=== PATIENT | female | born 1955 | race Caucasian/White ===

== ENCOUNTER 2021-04-23 15:34 | Inpatient (IN) | payer MEDICARE ==
[~2021-04-23 15:34] MED LIST: Iopamidol-370 76% 500 ML 1 ML ONE
[2021-04-23] MEDS ORDERED: Acetaminophen 325 MG TAB PO PRN (18:58)
[2021-04-23] MEDS ORDERED: Nitroglycerin 0.4 MG TAB (25 Tab Bottle) SL PRN (18:58)
[2021-04-23] MEDS ORDERED: HYDROcodone/Acetaminophen 5/325 mg Tablet PO PRN (18:58)
[2021-04-23] MEDS ORDERED: Ondansetron PF 4 MG/2 ML Vial IVP PRN (18:58)
[2021-04-23] MEDS ORDERED: Morphine 2 MG/ML VIAL SLOW IVP PRN (19:06)
[2021-04-23 19:43] LABS: SARS-CoV-2 NAA Rapid Test DETECTED (NotDetected)
[2021-04-23 20:15] LABS: Troponin I 18.635 ng/mL (< 0.028)
[2021-04-23 20:17] VITALS: BMI 28.1
[2021-04-23] MEDS ORDERED: Enoxaparin Sodium 80 MG/0.8 ML SYRINGE SC SCH ×2 (21:00→23:59)
[2021-04-24 03:38] LABS: #Basophils 0.1 thou/uL (0.0-0.2); #Eosinphils 0.3 thou/uL (0.0-0.7); #Lymphocytes 3.8 thou/uL (1.20-3.40); #Monocytes 0.9 thou/uL (0.11-0.59); #Neutrophils 8.1 thou/uL (1.40-6.50); %Basophils 0.6 % (0.0-1.0); %Eosinophils 2.3 % (0.0-10.0); %Lymphocytes 28.9 % (21.0-51.0); %Monocytes 6.9 % (0.0-10.0); %Neutrophils 61.2 % (42.0-75.0); Hemoglobin 13.8 g/dL (12.0-16.0); Mean Corpuscular HGB CONC 33.1 g/dL (32.0-36.0); Mean Corpuscular Hemoglobin 31.7 pg (27.0-31.0); Mean Corpuscular Volume 95.8 fL (78.0-98.0); Mean Platelet Volume 8.5 fL (7.4-10.4); Platelet Count 249 thou/uL (130-400); RBC Distribution Width 11.8 % (11.5-14.5); Red Blood Cell (RBC) Count 4.36 mill/uL (4.20-5.40); White Blood Cell (WBC) Count 13.2 thou/uL (4.8-10.8)
[2021-04-24 03:58] LABS: Bilirubin Negative (Negative); Blood, Urine Negative (Negative); Clarity Clear (Clear); Glucose, Urine (Dipstick) Normal (Negative); Ketone, Urine Negative (Negative); Leukocyte Negative Leu/uL (Negative); Nitrite Negative (Negative); Protein, Urine (Dipstick) Negative (Neg-Trace); RBC/HPF 0-3 HPF (0-3); Specific Gravity, Urine 1.016 (1.002-1.036); Squamous Epithelial 0-3 HPF (0-3); Urobilinogen Normal mg/dL (Less than 2); WBC/HPF 0-3 HPF (0-3); pH, Urine 5.5 (5.0-9.0)
[2021-04-24 03:59] LABS: Chloride 105 mmol/L (98-107); Sodium 138 mmol/L (136-145)
[2021-04-24 04:00] LABS: Calcium 8.4 mg/dL (7.8-10.44); Glucose 105 mg/dL (80-115); Triglycerides 215 mg/dL (Less than 150)
[2021-04-24 04:02] LABS: Anion Gap 14 mmol/L (10-20); Carbon Dioxide 23 mmol/L (23-31)
[2021-04-24 04:03] LABS: Critical Call Chem Troponin I RESULT DECREASING; Troponin I 14.758 ng/mL (< 0.028)
[2021-04-24 04:04] LABS: Calc. Creatinine Clearance 102 mL/min (70-130)
[2021-04-24 04:05] LABS: BUN (Urea Nitrogen) 8 mg/dL (9.8-20.1)
[2021-04-24 04:06] LABS: Cardiac Risk 5.1 (Less than 4.5); Cholesterol 215 mg/dl (< 200 Desired); HDL Cholesterol 42 mg/dL (>60 Neg Risk); LDL Cholesterol, Calculated 130 mg/dL
[2021-04-24 04:06] LABS: Bacteria/HPF 1+ HPF (None Seen)
[2021-04-24 04:08] LABS: Urine Culture Reflex Yes Yes
[2021-04-24] MEDS ORDERED: Enoxaparin Sodium 80 MG/0.8 ML SYRINGE SC SCH (09:00)
[2021-04-24] MEDS ORDERED: Iopamidol 370 76% 100 ML VIAL ONE (09:37)
[2021-04-24] MEDS ORDERED: Adenosine 6 MG/2 ML VIAL ONE (10:49)
[2021-04-24] MEDS ORDERED: Heparin 10,000 UNITS/ 10 ML VIAL ONE (10:49)
[2021-04-24] MEDS ORDERED: Verapamil 5 MG/2 ML VIAL ONE (10:49)
[2021-04-24] MEDS ORDERED: Nitroglycerin 100MG/250ML BOT 0 ML ONE (10:49)
[2021-04-24] MEDS ORDERED: Fentanyl 100 MCG/2 ML VIAL ONE (11:19)
[2021-04-24] MEDS ORDERED: Midazolam HCl 2 mg/2 ml Vial ONE (11:19)
[2021-04-24] MEDS ORDERED: Nitroglycerin 50 MG/250 ML BOT 250 ML ONE (11:36)
[2021-04-24] MEDS ORDERED: Fentanyl 250 MCG/5 ML VIAL ONE (11:59)
[2021-04-24] MEDS ORDERED: Midazolam HCl 5 mg/5 ml Vial ONE (12:00)
[2021-04-24] MEDS ORDERED: Dexamethasone 4 mg/ml Vial ONE (12:15)
[2021-04-24] MEDS ORDERED: Bupivacaine PF 0.5% 30 ML VIAL ONE (12:15)
[2021-04-24] MEDS ORDERED: EPINEPHrine 1 MG/ML AMP ONE (12:15)
[2021-04-24] MEDS ORDERED: Albumin 5% 500 ML ONE (12:15)
[2021-04-24] MEDS ORDERED: Lidocaine 2% PF 100 mg/5 ml Syringe ONE (12:45)
[2021-04-24] MEDS ORDERED: Calcium Chloride 1 GM/10 ML Abboject SYRINGE ONE (12:45)
[2021-04-24] MEDS ORDERED: Rocuronium Bromide 10 MG/ML (10ML VIAL) ONE (12:45)
[2021-04-24] MEDS ORDERED: Magnesium Sulfate 1 GM/2 ML VIAL ONE (12:45)
[2021-04-24] MEDS ORDERED: Sodium Bicarb 50 MEQ/50 ML Abboject 8.4% SYRINGE ONE (12:45)
[2021-04-24] MEDS ORDERED: Thrombin 5000 UNITS/5 ML VIAL ONE (12:45)
[2021-04-24] MEDS ORDERED: Aminocaproic Acid 5 GM/20 ML VIAL ONE (12:45)
[2021-04-24] MEDS ORDERED: Protamine Sulfate 250 MG/25 ML VIAL ONE (12:45)
[2021-04-24] MEDS ORDERED: Cardioplegic Soln 1,000 ML BAG ONE (12:45)
[2021-04-24] MEDS ORDERED: Vecuronium 10 MG VIAL ONE (12:45)
[2021-04-24] MEDS ORDERED: Heparin 5,000 UNITS/ML VIAL ONE (12:45)
[2021-04-24] MEDS ORDERED: Potassium Chloride 60 MEQ/30 ML VIAL ONE (12:45)
[2021-04-24] MEDS ORDERED: Papaverine 60 MG/2 ML VIAL ONE (12:45)
[2021-04-24] MEDS ORDERED: PROPOFOL 200 MG/20 ML VIAL ONE (12:45)
[2021-04-24] MEDS ORDERED: Fentanyl 100 MCG/2 ML VIAL SLOW IVP PRN (16:12)
[2021-04-24] MEDS ORDERED: Potassium Chloride 20 MEQ/100 ML PREMIX BAG IVPB PRN (16:12)
[2021-04-24] MEDS ORDERED: Acetaminophen 325 MG TAB PO PRN (16:12)
[2021-04-24] MEDS ORDERED: Bisacodyl 5 MG TAB PO PRN (16:12)
[2021-04-24] MEDS ORDERED: hydrALAZINE 20 MG/ML VIAL SLOW IVP PRN (16:12)
[2021-04-24] MEDS ORDERED: Bisacodyl 10 MG SUPP PR PRN (16:12)
[2021-04-24] MEDS ORDERED: Nitroglycerin 50 MG/250 ML BOT 250 ML IVPB PRN (16:12)
[2021-04-24] MEDS ORDERED: traMADol HCl 50 MG TAB PO PRN ×2 (16:12)
[2021-04-24] MEDS ORDERED: Guaifenesin DM 100-10/5 ML UDCUP PO PRN (16:12)
[2021-04-24] MEDS ORDERED: Hetastarch 6% 500 ML 500 ML IVPB PRN (16:12)
[2021-04-24] MEDS ORDERED: Mag-Al 1200 mg/1200 mg/30 ML UDCUP PO PRN (16:12)
[2021-04-24] MEDS ORDERED: Morphine 2 MG/ML VIAL SLOW IVP PRN (16:12)
[2021-04-24] MEDS ORDERED: Magnesium 2 GM/50 ML 1 GM in Premix Bag 1 BAG IVPB SCH (16:15)
[2021-04-24] MEDS ORDERED: Hydrocortisone Sod Succ/PF 100 mg/2 ml Vial IVP SCH (16:15)
[2021-04-24] MEDS ORDERED: D5 1/2 NS w/20 mEq KCL 1,000 ML ONE (16:15)
[2021-04-24] MEDS ORDERED: D5 1/2 NS w/20 mEq KCL 1,000 ML IV SCH (16:15)
[2021-04-24] MEDS ORDERED: Morphine 4 MG/ML VIAL ONE (16:44)
[2021-04-24 16:47] LABS: Actual Bicarbonate (HCO3a) 21.2 mEq/L (22-28); Base Excess (BEa) -5.4 mEq/L (-2.0 to +3.0); CO2 Tension 45.9 mmHg (35.0-45.0); Calcium, Ionized (arterial) 1.14 mmol/L (1.12-1.30); Carboxyhemoglobin (COHb) 0.8 gm% (0.0-3.0); Hemoglobin (Hb) 12.5 g/dL (12.0-16.0); O2 Tension (PaO2), arterial 70.1 mmHg (> 80.0); Potassium - ABG Lab 4.01 mmol/L (3.70-5.30); pH, Arterial 7.28 (7.35-7.45)
[2021-04-24 16:52] LABS: ALV-art Gradient 300.325 mmHg (0-20); Puncture Site Arterial Line
[2021-04-24 16:56] LABS: Hemoglobin 12.2 g/dL (12.0-16.0); Mean Corpuscular HGB CONC 33.5 g/dL (32.0-36.0); Mean Corpuscular Hemoglobin 32.7 pg (27.0-31.0); Mean Corpuscular Volume 97.4 fL (78.0-98.0); Mean Platelet Volume 8.6 fL (7.4-10.4); Platelet Count 303 thou/uL (130-400); RBC Distribution Width 11.9 % (11.5-14.5); Red Blood Cell (RBC) Count 3.73 mill/uL (4.20-5.40); White Blood Cell (WBC) Count 38.6 thou/uL (4.8-10.8)
[2021-04-24 17:00] LABS: Anion Gap 14 mmol/L (10-20); BUN (Urea Nitrogen) 7 mg/dL (9.8-20.1); Calc. Creatinine Clearance 96 mL/min (70-130); Calcium 8.2 mg/dL (7.8-10.44); Carbon Dioxide 21 mmol/L (23-31); Chloride 109 mmol/L (98-107); Glucose 198 mg/dL (80-115); Potassium 4.2 mmol/L (3.5-5.1); Sodium 140 mmol/L (136-145)
[2021-04-24] MEDS ORDERED: Dextrose 5% in Water 1,000 ML IV PRN (17:00)
[2021-04-24] MEDS ORDERED: Dextrose 50% Abboject 50 ML SYRINGE SLOW IVP PRN (17:00)
[2021-04-24 17:01] LABS: INR-International Normal Ratio 1.2; PTT 37.4 sec (22.9-36.1); Prothrombin Time 15.7 sec (12.0-14.7)
[2021-04-24 17:09] LABS: Band 30 % (5-11); Lymphocytes 13 % (21-51); MDiff Complete? YES; Monocytes 3 % (0-10); Neutrophil 54 % (42-75); Platelet Morphology Comment Appears Adequate; Polychromasia SLIGHT = 2-3 cells (100X) (0-2/hpf)
[2021-04-24] MEDS: Insulin Regular 300 UNITS/3 ML VIAL SC PRN ×3 (17:17→23:53)
[2021-04-24] MEDS: Ketorolac Tromethamine 30 MG/ML VIAL IVP SCH ×2 (18:12→23:04)
[2021-04-24] MEDS: Atorvastatin Calcium 40 MG TAB PO SCH (20:05)
[2021-04-24] MEDS: ceFAZolin Sodium/D5W 2 GM in Premix Bag 1 BAG IVPB SCH (20:05)
[2021-04-24] MEDS: Famotidine/PF 20 mg/2ml Vial SLOW IVP SCH (20:06)
[2021-04-24 22:08] LABS: Hemoglobin 11.7 g/dL (12.0-16.0)
[2021-04-24 22:20] LABS: Potassium 4.7 mmol/L (3.5-5.1)
[2021-04-24] MEDS: Ondansetron PF 4 MG/2 ML Vial IVP PRN (23:22)
[2021-04-25] MEDS: Norepinephrine 8 MG/0.9% NS 250 ML IVPB PRN (02:20)
[2021-04-25] MEDS: Fentanyl 100 MCG/2 ML VIAL SLOW IVP PRN ×3 (02:34→10:27)
[2021-04-25] MEDS: ceFAZolin Sodium/D5W 2 GM in Premix Bag 1 BAG IVPB SCH ×2 (04:11→13:13)
[2021-04-25 05:00] LABS: #Eosinphils 0.1 thou/uL (0.0-0.7); #Lymphocytes 0.9 thou/uL (1.20-3.40); #Monocytes 0.9 thou/uL (0.11-0.59); %Eosinophils 0.5 % (0.0-10.0); %Lymphocytes 4.3 % (21.0-51.0); %Monocytes 4.2 % (0.0-10.0); Mean Corpuscular HGB CONC 33.6 g/dL (32.0-36.0); Mean Corpuscular Hemoglobin 32.7 pg (27.0-31.0); Mean Corpuscular Volume 97.5 fL (78.0-98.0); Platelet Count 279 thou/uL (130-400); RBC Distribution Width 11.9 % (11.5-14.5); Red Blood Cell (RBC) Count 3.35 mill/uL (4.20-5.40); White Blood Cell (WBC) Count 21.9 thou/uL (4.8-10.8)
[2021-04-25] MEDS: Ketorolac Tromethamine 30 MG/ML VIAL IVP SCH (05:14)
[2021-04-25 05:20] LABS: Anion Gap 11 mmol/L (10-20); BUN (Urea Nitrogen) 8 mg/dL (9.8-20.1); Calc. Creatinine Clearance 103 mL/min (70-130); Calcium 8.4 mg/dL (7.8-10.44); Carbon Dioxide 24 mmol/L (23-31); Chloride 109 mmol/L (98-107); Glucose 128 mg/dL (80-115); Potassium 4.6 mmol/L (3.5-5.1); Sodium 139 mmol/L (136-145)
[2021-04-25] MEDS: Ondansetron PF 4 MG/2 ML Vial IVP PRN (05:20)
[2021-04-25] MEDS: Insulin Regular 300 UNITS/3 ML VIAL SC PRN ×2 (05:52→08:23)
[2021-04-25] MEDS: Magnesium 2 GM/50 ML 1 GM in Premix Bag 1 BAG IVPB SCH (08:21)
[2021-04-25] MEDS: Famotidine/PF 20 mg/2ml Vial SLOW IVP SCH (08:22)
[2021-04-25] MEDS ORDERED: Aspirin 325 MG TAB PO SCH (09:00)
[2021-04-25] MEDS ORDERED: predniSONE 20 MG TAB PO SCH (09:00)
[2021-04-25] MEDS ORDERED: Iopamidol-370 76% 500 ML 1 ML ONE (09:39)
[2021-04-25] MEDS: Ibuprofen 200 MG TAB PO PRN ×2 (11:35→22:32)
[2021-04-25] MEDS ORDERED: HYDROcodone/Acetaminophen 5/325 mg Tablet PO PRN (14:39)
[2021-04-25] MEDS: HYDROcodone/Acetaminophen 5/325 mg Tablet PO PRN ×2 (15:09→20:05)
[2021-04-25] MEDS: Atorvastatin Calcium 40 MG TAB PO SCH (20:04)
[2021-04-25] MEDS ORDERED: Clopidogrel Bisulfate 75 MG TAB PO SCH (22:15)
[2021-04-25] MEDS: Lorazepam 0.5 MG TAB PO PRN (22:33)
[2021-04-26] MEDS: Fentanyl 100 MCG/2 ML VIAL SLOW IVP PRN ×4 (02:12→15:55)
[2021-04-26 05:03] LABS: #Eosinphils 0.1 thou/uL (0.0-0.7); #Monocytes 1.5 thou/uL (0.11-0.59); #Neutrophils 14.9 thou/uL (1.40-6.50); %Basophils 0.2 % (0.0-1.0); %Eosinophils 0.4 % (0.0-10.0); %Lymphocytes 15.3 % (21.0-51.0); %Monocytes 7.5 % (0.0-10.0); %Neutrophils 76.7 % (42.0-75.0); Hemoglobin 10.2 g/dL (12.0-16.0); Mean Corpuscular HGB CONC 32.5 g/dL (32.0-36.0); Mean Corpuscular Hemoglobin 31.6 pg (27.0-31.0); Mean Corpuscular Volume 97.4 fL (78.0-98.0); Platelet Count 250 thou/uL (130-400); RBC Distribution Width 12.1 % (11.5-14.5); Red Blood Cell (RBC) Count 3.24 mill/uL (4.20-5.40); White Blood Cell (WBC) Count 19.5 thou/uL (4.8-10.8)
[2021-04-26 05:36] LABS: Anion Gap 12 mmol/L (10-20); BUN (Urea Nitrogen) 10 mg/dL (9.8-20.1); Calc. Creatinine Clearance 115 mL/min (70-130); Calcium 8.2 mg/dL (7.8-10.44); Carbon Dioxide 24 mmol/L (23-31); Chloride 106 mmol/L (98-107); Glucose 137 mg/dL (80-115); Potassium 4.1 mmol/L (3.5-5.1); Sodium 138 mmol/L (136-145)
[2021-04-26] MEDS: Levothyroxine Sodium 50 MCG TAB PO SCH (06:14)
[2021-04-26] MEDS: Ondansetron PF 4 MG/2 ML Vial IVP PRN ×2 (06:35→15:55)
[2021-04-26] MEDS ORDERED: Protamine Sulfate 50 MG/5 ML VIAL ONE (06:51)
[2021-04-26] MEDS ORDERED: Heparin 5,000 UNITS/ML VIAL ONE (06:51)
[2021-04-26] MEDS ORDERED: Bupivacaine PF 0.5% 30 ML VIAL ONE (06:51)
[2021-04-26] MEDS ORDERED: EPINEPHrine 1 MG/ML AMP ONE (06:51)
[2021-04-26] MEDS: Magnesium 2 GM/50 ML 1 GM in Premix Bag 1 BAG IVPB SCH (08:14)
[2021-04-26] MEDS: Norepinephrine 8 MG/0.9% NS 250 ML IVPB PRN (08:23)
[2021-04-26] MEDS ORDERED: Fentanyl 100 MCG/2 ML VIAL ONE ×2 (09:24→12:34)
[2021-04-26] MEDS ORDERED: Ondansetron PF 4 MG/2 ML Vial IVP SCH (09:30)
[2021-04-26] MEDS ORDERED: Dexamethasone 4 mg/ml Vial SLOW IVP SCH (09:30)
[2021-04-26] MEDS: Clopidogrel Bisulfate 75 MG TAB PO SCH (09:35)
[2021-04-26] MEDS: Aspirin 81 mg Enteric Coated Tablet PO SCH (09:35)
[2021-04-26] MEDS: predniSONE 5 MG TAB PO SCH (09:35)
[2021-04-26] MEDS: DULoxetine 60 MG CAP PO SCH ×2 (09:35→19:43)
[2021-04-26] MEDS: Fluticasone Propionate Nasal Spray 16 gm Bottle NASAL SCH (09:35)
[2021-04-26] MEDS ORDERED: Midazolam HCl 2 mg/2 ml Vial ONE (09:38)
[2021-04-26] MEDS ORDERED: Ketamine 50 MG/ML (10ML VIAL) ONE (09:39)
[2021-04-26] MEDS ORDERED: PROPOFOL 200 MG/20 ML VIAL ONE (10:39)
[2021-04-26] MEDS ORDERED: Glycopyrrolate 0.2 MG/ML 5 ML SYRINGE ONE (10:39)
[2021-04-26] MEDS ORDERED: Rocuronium Bromide 10 MG/ML (10ML VIAL) ONE (10:39)
[2021-04-26] MEDS: Lorazepam 0.5 MG TAB PO PRN ×2 (15:56→21:41)
[2021-04-26] MEDS: HYDROcodone/Acetaminophen 5/325 mg Tablet PO PRN ×2 (18:17→23:19)
[2021-04-26] MEDS: Atorvastatin Calcium 40 MG TAB PO SCH (21:11)
[2021-04-27] MEDS: Ondansetron PF 4 MG/2 ML Vial IVP PRN (03:34)
[2021-04-27 04:04] LABS: #Lymphocytes 1.6 thou/uL (1.20-3.40); #Neutrophils 11.2 thou/uL (1.40-6.50); %Eosinophils 0.4 % (0.0-10.0); %Lymphocytes 11.3 % (21.0-51.0); %Monocytes 7.1 % (0.0-10.0); %Neutrophils 81.2 % (42.0-75.0); Hemoglobin 8.9 g/dL (12.0-16.0); Mean Corpuscular HGB CONC 32.3 g/dL (32.0-36.0); Mean Corpuscular Hemoglobin 31.7 pg (27.0-31.0); Mean Corpuscular Volume 98.2 fL (78.0-98.0); Platelet Count 219 thou/uL (130-400); RBC Distribution Width 12.2 % (11.5-14.5); Red Blood Cell (RBC) Count 2.79 mill/uL (4.20-5.40); White Blood Cell (WBC) Count 13.8 thou/uL (4.8-10.8)
[2021-04-27 04:25] LABS: Anion Gap 10 mmol/L (10-20); BUN (Urea Nitrogen) 8 mg/dL (9.8-20.1); Calc. Creatinine Clearance 124 mL/min (70-130); Carbon Dioxide 27 mmol/L (23-31); Chloride 106 mmol/L (98-107); Glucose 125 mg/dL (80-115); Potassium 4.6 mmol/L (3.5-5.1); Sodium 138 mmol/L (136-145)
[2021-04-27] MEDS: Levothyroxine Sodium 50 MCG TAB PO SCH (05:50)
[2021-04-27] MEDS: HYDROcodone/Acetaminophen 5/325 mg Tablet PO PRN ×4 (06:02→21:32)
[2021-04-27] MEDS: Clopidogrel Bisulfate 75 MG TAB PO SCH (08:25)
[2021-04-27] MEDS: Aspirin 81 mg Enteric Coated Tablet PO SCH (08:26)
[2021-04-27] MEDS: Fluticasone Propionate Nasal Spray 16 gm Bottle NASAL SCH (08:26)
[2021-04-27] MEDS: predniSONE 5 MG TAB PO SCH (08:26)
[2021-04-27] MEDS: DULoxetine 60 MG CAP PO SCH (08:26)
[2021-04-27] MEDS ORDERED: Nicotine 21 MG PATCH TD SCH (09:00)
[2021-04-27] MEDS ORDERED: Nitroglycerin 0.4 MG TAB (25 Tab Bottle) SL PRN (15:30)
[2021-04-27] MEDS ORDERED: Bisacodyl 10 MG SUPP PR PRN (15:30)
[2021-04-27] MEDS ORDERED: diphenhydrAMINE 25 MG CAP PO PRN (15:30)
[2021-04-27] MEDS ORDERED: Bisacodyl 5 MG TAB PO PRN (15:30)
[2021-04-27] MEDS ORDERED: Guaifenesin DM 100-10/5 ML UDCUP PO PRN (15:30)
[2021-04-27] MEDS ORDERED: Mag-Al 1200 mg/1200 mg/30 ML UDCUP PO PRN (15:30)
[2021-04-27] MEDS ORDERED: Zolpidem Tartrate 5 MG TAB PO PRN (15:30)
[2021-04-27] MEDS ORDERED: Mineral Oil ENEMA PR PRN (15:30)
[2021-04-27] MEDS: Nicotine 21 MG PATCH TD SCH (19:56)
[2021-04-27] MEDS: Atorvastatin Calcium 40 MG TAB PO SCH (19:56)
[2021-04-27] MEDS: Lorazepam 0.5 MG TAB PO PRN (22:27)
[2021-04-28] MEDS: Levothyroxine Sodium 50 MCG TAB PO SCH (04:22)
[2021-04-28] MEDS: predniSONE 5 MG TAB PO SCH (09:39)
[2021-04-28] MEDS: Aspirin 81 mg Enteric Coated Tablet PO SCH (09:39)
[2021-04-28] MEDS: Potassium Chloride 10 MEQ TAB PO SCH (09:39)
[2021-04-28] MEDS: Metoprolol Tartrate 25 MG TAB PO SCH ×2 (09:40→20:50)
[2021-04-28] MEDS: Clopidogrel Bisulfate 75 MG TAB PO SCH (09:40)
[2021-04-28] MEDS: Furosemide 40 MG TAB PO SCH (09:40)
[2021-04-28] MEDS ORDERED: HYDROcodone/Acetaminophen 5/325 mg Tablet PO PRN (09:40)
[2021-04-28] MEDS: DULoxetine 60 MG CAP PO SCH (09:40)
[2021-04-28] MEDS: Fluticasone Propionate Nasal Spray 16 gm Bottle NASAL SCH (12:25)
[2021-04-28] MEDS: Hydrocodone-Acetamin 15 ML UDCUP PO PRN ×2 (12:25→20:52)
[2021-04-28] MEDS: Lorazepam 0.5 MG TAB PO PRN (19:09)
[2021-04-28] MEDS: Ibuprofen 200 MG TAB PO PRN (19:10)
[2021-04-28] MEDS: Nicotine 21 MG PATCH TD SCH (20:50)
[2021-04-28] MEDS: Atorvastatin Calcium 40 MG TAB PO SCH (20:51)
[2021-04-28] MEDS: Ondansetron PF 4 MG/2 ML Vial IVP PRN (21:39)
[2021-04-29] MEDS: Lorazepam 0.5 MG TAB PO PRN ×2 (02:48→20:24)
[2021-04-29] MEDS: Levothyroxine Sodium 50 MCG TAB PO SCH (05:17)
[2021-04-29] MEDS: Metoprolol Tartrate 25 MG TAB PO SCH ×2 (09:12→20:23)
[2021-04-29] MEDS: predniSONE 5 MG TAB PO SCH (09:12)
[2021-04-29] MEDS: Potassium Chloride 10 MEQ TAB PO SCH (09:12)
[2021-04-29] MEDS: DULoxetine 60 MG CAP PO SCH (09:12)
[2021-04-29] MEDS: Aspirin 81 mg Enteric Coated Tablet PO SCH (09:13)
[2021-04-29] MEDS: Furosemide 40 MG TAB PO SCH (09:13)
[2021-04-29] MEDS: Clopidogrel Bisulfate 75 MG TAB PO SCH (09:13)
[2021-04-29] MEDS: HYDROcodone/Acetaminophen 5/325 mg Tablet PO PRN ×3 (09:13→20:22)
[2021-04-29] MEDS: Fluticasone Propionate Nasal Spray 16 gm Bottle NASAL SCH (09:15)
[2021-04-29] MEDS: Atorvastatin Calcium 40 MG TAB PO SCH (20:22)
[2021-04-29] MEDS: Nicotine 21 MG PATCH TD SCH (20:24)
[2021-04-29] MEDS: Ibuprofen 200 MG TAB PO PRN (22:39)
[2021-04-30] MEDS: HYDROcodone/Acetaminophen 5/325 mg Tablet PO PRN ×3 (05:34→13:59)
[2021-04-30] MEDS: Levothyroxine Sodium 50 MCG TAB PO SCH (05:34)
[2021-04-30] MEDS: Potassium Chloride 10 MEQ TAB PO SCH (09:09)
[2021-04-30] MEDS: Aspirin 81 mg Enteric Coated Tablet PO SCH (09:09)
[2021-04-30] MEDS: predniSONE 5 MG TAB PO SCH (09:09)
[2021-04-30] MEDS: Clopidogrel Bisulfate 75 MG TAB PO SCH (09:09)
[2021-04-30] MEDS: DULoxetine 60 MG CAP PO SCH (09:09)
[2021-04-30] MEDS: Fluticasone Propionate Nasal Spray 16 gm Bottle NASAL SCH (09:09)
[2021-04-30] MEDS: Furosemide 40 MG TAB PO SCH (09:09)
[2021-04-30] MEDS: Metoprolol Tartrate 25 MG TAB PO SCH (09:10)
[2021-04-30 11:43] VITALS: BP 117/58; TEMP 98.2
== END 2021-04-30 14:45 | disposition home or self-care (01) | DRG 233 ==
LOC: ERS 15:34 → 2NO 17:38 → CCU 04-24 11:59 → 2NO 04-27 20:52
PROVIDERS: ADMIT Internal Medicine; ATTEND Internal Medicine
PROC: 4A023N7 Measurement of Cardiac Sampling and Pressure, Left Heart, Percutaneous Approach (ICD-10-PCS; 2021-04-23)
PROC: B2111ZZ Fluoroscopy of Multiple Coronary Arteries using Low Osmolar Contrast (ICD-10-PCS; 2021-04-23)
PROC: 021109W Bypass Coronary Artery, Two Arteries from Aorta with Autologous Venous Tissue, Open Approach (ICD-10-PCS; principal; 2021-04-24)
PROC: 02100Z9 Bypass Coronary Artery, One Artery from Left Internal Mammary, Open Approach (ICD-10-PCS; 2021-04-24)
PROC: 06BQ4ZZ Excision of Left Saphenous Vein, Percutaneous Endoscopic Approach (ICD-10-PCS; 2021-04-24)
PROC: 5A1221Z Performance of Cardiac Output, Continuous (ICD-10-PCS; 2021-04-24)
PROC: 03CH0ZZ Extirpation of Matter from Right Common Carotid Artery, Open Approach (ICD-10-PCS; 2021-04-26)
PROC: 03CM0ZZ Extirpation of Matter from Right External Carotid Artery, Open Approach (ICD-10-PCS; 2021-04-26)
PROC: 03CK0ZZ Extirpation of Matter from Right Internal Carotid Artery, Open Approach (ICD-10-PCS; 2021-04-26)
PROC: 03UH0KZ Supplement Right Common Carotid Artery with Nonautologous Tissue Substitute, Open Approach (ICD-10-PCS; 2021-04-26)
PROC: 03UK0KZ Supplement Right Internal Carotid Artery with Nonautologous Tissue Substitute, Open Approach (ICD-10-PCS; 2021-04-26)
PROC: 03UM0KZ Supplement Right External Carotid Artery with Nonautologous Tissue Substitute, Open Approach (ICD-10-PCS; 2021-04-26)
DX: I21.4 Non-ST elevation (NSTEMI) myocardial infarction (principal); U07.1 COVID-19; I50.22 Chronic systolic (congestive) heart failure; E03.9 Hypothyroidism, unspecified; F41.9 Anxiety disorder, unspecified; F32.9 Major depressive disorder, single episode, unspecified; F17.210 Nicotine dependence, cigarettes, uncomplicated; I65.21 Occlusion and stenosis of right carotid artery; I25.110 Atherosclerotic heart disease of native coronary artery with unstable angina pectoris; E66.9 Obesity, unspecified; D72.829 Elevated white blood cell count, unspecified; D64.89 Other specified anemias; T38.0X5A Adverse effect of glucocorticoids and synthetic analogues, initial encounter; M35.00 Sjogren syndrome, unspecified; Z79.899 Other long term (current) drug therapy; Z82.49 Family history of ischemic heart disease and other diseases of the circulatory system; Z71.6 Tobacco abuse counseling; Z68.30 Body mass index [BMI] 30.0-30.9, adult
CPT/HCPCS: 36415; 36416; 36430; 70496; 70498; 71045; 71275; 76942; 80048; 80061; 81001; 82805; 83880; 84484; 85025; 85610; 85730; 86850; 86900; 86901; 87086; 93005; 93010; 93306; 93458; 93798; 94002; 94640; 97139; 99152; J0153; J0171; J1100; J1642; J1644; J1650; J1720; J1815; J1885; J2001; J2250; J2270; J2405; J2440; J2704; J2720; J3010; J3370; J3475; J3480; J7512; J7620; P9045; Q9967; S0017; S0020; S0028; U0002

== ENCOUNTER 2021-08-17 15:40 | Outpatient (CLI) | payer MEDICARE ==
[2021-08-17 16:53] LABS: Anion Gap 14 mmol/L (10-20); BUN (Urea Nitrogen) 13 mg/dL (9.8-20.1); Calc. Creatinine Clearance 0 mL/min (70-130); Calcium 9.4 mg/dL (7.8-10.44); Carbon Dioxide 30 mmol/L (23-31); Chloride 99 mmol/L (98-107); Glucose 97 mg/dL (80-115); Potassium 4.7 mmol/L (3.5-5.1); Sodium 138 mmol/L (136-145)
[2021-08-17 16:54] LABS: Hemoglobin 11.9 g/dL (12.0-15.5); Mean Corpuscular HGB CONC 31.9 g/dL (32.0-36.0); Mean Corpuscular Hemoglobin 30.7 pg (27.0-33.0); Mean Corpuscular Volume 96.1 fl (81.6-98.3); Mean Platelet Volume 10.1 fl (7.4-10.4); Platelet Count 381 10x3/uL (150-450); Red Blood Cell (RBC) Count 3.88 10x6/uL (3.90-5.03); White Blood Cell (WBC) Count 10.5 10x3/uL (3.5-10.5)
[2021-08-18 09:53] LABS: SARS-CoV-2 PCR by NAA Not Detected (NotDetected)
== END 2021-08-17 15:41 | disposition home or self-care (01) ==
LOC: LABBT 15:40
PROVIDERS: ATTEND Thoracic Surgery (Cardiothoracic Vascular Surgery)
DX: Z01.812 Encounter for preprocedural laboratory examination (principal); I65.22 Occlusion and stenosis of left carotid artery; Z20.822 Contact with and (suspected) exposure to COVID-19
CPT/HCPCS: 80048; 85027; U0003; U0005

== ENCOUNTER 2021-08-31 15:00 | Inpatient (IN) | payer MEDICARE ==
[2021-09-21] MEDS ORDERED: Midazolam HCl 5 mg/5 ml Vial ONE (07:54)
[2021-09-21] MEDS ORDERED: Fentanyl 250 MCG/5 ML VIAL ONE (07:54)
[2021-09-21] MEDS ORDERED: Protamine Sulfate 50 MG/5 ML VIAL ONE ×2 (08:11→11:09)
[2021-09-21] MEDS ORDERED: Heparin 5,000 UNITS/ML VIAL ONE (08:11)
[2021-09-21] MEDS ORDERED: Ketamine 50 MG/ML (10ML VIAL) ONE (08:20)
[2021-09-21] MEDS ORDERED: Bupivacaine PF 0.5% 30 ML VIAL ONE (08:59)
[2021-09-21] MEDS ORDERED: EPINEPHrine 1 MG/ML AMP ONE (08:59)
[2021-09-21] MEDS ORDERED: Dexamethasone 4 mg/ml Vial ONE (08:59)
[2021-09-21] MEDS ORDERED: ceFAZolin Sodium (SDC) 2 GM/100 ML BAG ONE (09:10)
[2021-09-21] MEDS ORDERED: Midazolam HCl 2 mg/2 ml Vial ONE (09:14)
[2021-09-21] MEDS ORDERED: Phenylephrine 10 MG/ML VIAL ONE (10:15)
[2021-09-21] MEDS ORDERED: Thrombin 5000 UNITS/5 ML VIAL ONE (11:09)
[2021-09-21] MEDS ORDERED: Ondansetron PF 4 MG/2 ML Vial IVP PRN (12:02)
[2021-09-21] MEDS ORDERED: Nitroglycerin 50 MG/250 ML BOT 250 ML IVPB PRN (12:02)
[2021-09-21] MEDS ORDERED: hydrALAZINE 20 MG/ML VIAL SLOW IVP PRN (12:02)
[2021-09-21] MEDS ORDERED: Nicotine 7 MG PATCH TD PRN (12:02)
[2021-09-21] MEDS ORDERED: Fentanyl 100 MCG/2 ML VIAL SLOW IVP PRN (12:02)
[2021-09-21] MEDS ORDERED: Acetaminophen 325 MG TAB PO PRN (12:02)
[2021-09-21] MEDS ORDERED: Phenylephrine 40 MG in Sodium Chloride 0.9% 250 ML 250 ML IVPB SCH (12:45)
[2021-09-21] MEDS ORDERED: Phenylephrine 40 MG/NS 250 ML 250 ML IVPB SCH (12:45)
[2021-09-21] MEDS ORDERED: Glycopyrrolate 0.2 MG/ML 5 ML SYRINGE ONE (12:47)
[2021-09-21] MEDS: Phenylephrine 40 MG in Sodium Chloride 0.9% 250 ML 250 ML IVPB PRN ×2 (13:11→20:20)
[2021-09-21 15:03] VITALS: BMI 31.1
[2021-09-21] MEDS ORDERED: CEFAZOLIN 2 GM in Sodium Chloride 0.9% 100 ML IVPB SCH (17:00)
[2021-09-21] MEDS: Sodium Chloride 0.9% 1,000 ML IV SCH ×2 (20:00→22:33)
[2021-09-21] MEDS: Gabapentin 300 MG CAP PO SCH (20:01)
[2021-09-21] MEDS: HYDROcodone/Acetaminophen 5/325 mg Tablet PO PRN (20:01)
[2021-09-21] MEDS ORDERED: Atorvastatin Calcium 40 MG TAB PO SCH (21:00)
[2021-09-22] MEDS: CEFAZOLIN 2 GM, Admixture Fee 1 EACH in Sodium Chloride 0.9% 100 ML IVPB SCH ×2 (00:33→08:39)
[2021-09-22] MEDS ORDERED: Levothyroxine Sodium 75 MCG TAB PO SCH (06:00)
[2021-09-22] MEDS ORDERED: Phentolamine Mesylate 5 MG in Sodium Chloride 0.9% 9 ML SC SCH (06:15)
[2021-09-22] MEDS: Sodium Chloride 0.9% 1,000 ML IV SCH (08:40)
[2021-09-22] MEDS: Gabapentin 300 MG CAP PO SCH (08:40)
[2021-09-22 08:56] VITALS: TEMP 97.7
[2021-09-22] MEDS ORDERED: Clopidogrel Bisulfate 75 MG TAB PO SCH (09:00)
[2021-09-22] MEDS ORDERED: Aspirin 81 mg Enteric Coated Tablet PO SCH (09:00)
[2021-09-22] MEDS ORDERED: Fluticasone Propionate Nasal Spray 16 gm Bottle NASAL SCH (09:00)
[2021-09-22] MEDS ORDERED: predniSONE 5 MG TAB PO SCH (09:00)
[2021-09-22] MEDS ORDERED: ARMODAFINIL 150 MG PO SCH (09:00)
[2021-09-22] MEDS ORDERED: Furosemide 40 MG TAB PO SCH (09:00)
[2021-09-22] MEDS ORDERED: DULoxetine 60 MG CAP PO SCH (09:00)
[2021-09-22] MEDS: HYDROcodone/Acetaminophen 5/325 mg Tablet PO PRN (09:30)
[2021-09-22] MEDS ORDERED: Metoprolol Tartrate 25 MG TAB PO SCH (21:00)
[2021-09-25] MEDS ORDERED: CHOLECALCIFEROL 1250 MCG PO SCH (09:00)
== END 2021-09-22 10:05 | disposition home or self-care (01) | DRG 39 ==
LOC: EDSTATUS 09-03 15:00 → SURG A 09-21 08:08 → CCU 09-21 14:20
PROVIDERS: ADMIT Thoracic Surgery (Cardiothoracic Vascular Surgery); ATTEND Thoracic Surgery (Cardiothoracic Vascular Surgery)
PROC: 03CL0ZZ Extirpation of Matter from Left Internal Carotid Artery, Open Approach (ICD-10-PCS; principal; 2021-09-21)
PROC: 03CJ0ZZ Extirpation of Matter from Left Common Carotid Artery, Open Approach (ICD-10-PCS; 2021-09-21)
PROC: 03CN0ZZ Extirpation of Matter from Left External Carotid Artery, Open Approach (ICD-10-PCS; 2021-09-21)
PROC: 03UJ0JZ Supplement Left Common Carotid Artery with Synthetic Substitute, Open Approach (ICD-10-PCS; 2021-09-21)
PROC: 03UL0JZ Supplement Left Internal Carotid Artery with Synthetic Substitute, Open Approach (ICD-10-PCS; 2021-09-21)
PROC: 03UN0JZ Supplement Left External Carotid Artery with Synthetic Substitute, Open Approach (ICD-10-PCS; 2021-09-21)
PROC: 3E033XZ Introduction of Vasopressor into Peripheral Vein, Percutaneous Approach (ICD-10-PCS; 2021-09-21)
DX: I65.22 Occlusion and stenosis of left carotid artery (principal); Z20.822 Contact with and (suspected) exposure to COVID-19
CPT/HCPCS: 85014; 85018; 93005; 93010; 94640; C1713; C1768; C1776; J0171; J0690; J1100; J1644; J2250; J2370; J2597; J2720; J2760; J3010; J3490; J7050; J7512; J7620; S0020

== ENCOUNTER 2021-08-31 15:09 | Outpatient (CLI) | payer MEDICARE ==
[2021-09-01 08:37] LABS: SARS-CoV-2 PCR by NAA Not Detected (NotDetected)
== END 2021-08-31 15:10 | disposition home or self-care (01) ==
LOC: LABBT 15:09
PROVIDERS: ATTEND Thoracic Surgery (Cardiothoracic Vascular Surgery)
DX: Z01.812 Encounter for preprocedural laboratory examination (principal); I65.22 Occlusion and stenosis of left carotid artery; Z20.822 Contact with and (suspected) exposure to COVID-19
CPT/HCPCS: U0003; U0005

== ENCOUNTER 2021-09-16 14:22 | Outpatient (CLI) | payer MEDICARE ==
[2021-09-16 15:07] LABS: Hemoglobin 12.8 g/dL (12.0-15.5); Mean Corpuscular Hemoglobin 31.7 pg (27.0-33.0); Mean Corpuscular Volume 93.3 fl (81.6-98.3); Platelet Count 338 10x3/uL (150-450); RBC Distribution Width 13.2 % (11.5-14.5); Red Blood Cell (RBC) Count 4.04 10x6/uL (3.90-5.03); White Blood Cell (WBC) Count 10.3 10x3/uL (3.5-10.5)
[2021-09-16 15:32] LABS: Anion Gap 15 mmol/L (10-20); BUN (Urea Nitrogen) 15 mg/dL (9.8-20.1); Calc. Creatinine Clearance 0 mL/min (70-130); Calcium 9.3 mg/dL (7.8-10.44); Carbon Dioxide 26 mmol/L (23-31); Chloride 99 mmol/L (98-107); Glucose 106 mg/dL (80-115); Potassium 4.3 mmol/L (3.5-5.1); Sodium 136 mmol/L (136-145)
[2021-09-17 18:07] LABS: SARS-CoV-2 PCR by NAA Not Detected (NotDetected)
== END 2021-09-16 14:23 | disposition home or self-care (01) ==
LOC: LABBT 14:22
PROVIDERS: ATTEND Internal Medicine Critical Care Medicine
DX: Z01.812 Encounter for preprocedural laboratory examination (principal); I65.22 Occlusion and stenosis of left carotid artery; Z20.822 Contact with and (suspected) exposure to COVID-19
CPT/HCPCS: 80048; 85027; U0003; U0005

== ENCOUNTER 2021-12-19 18:52 | Observation (INO) | payer MEDICARE ==
[2021-12-19 19:23] LABS: #Basophils 0.1 thou/uL (0.0-0.2); #Eosinphils 0.1 thou/uL (0.0-0.7); #Lymphocytes 1.5 thou/uL (1.20-3.40); #Monocytes 0.4 thou/uL (0.11-0.59); #Neutrophils 7.6 thou/uL (1.40-6.50); %Basophils 0.7 % (0.0-1.0); %Eosinophils 0.7 % (0.0-10.0); %Lymphocytes 15.4 % (21.0-51.0); %Monocytes 4.5 % (0.0-10.0); %Neutrophils 78.6 % (42.0-75.0); Hemoglobin 13.5 g/dL (12.0-16.0); Mean Corpuscular HGB CONC 33.4 g/dL (32.0-36.0); Mean Corpuscular Volume 95.8 fL (78.0-98.0); Mean Platelet Volume 7.5 fL (7.4-10.4); Platelet Count 294 thou/uL (130-400); RBC Distribution Width 12.7 % (11.5-14.5); White Blood Cell (WBC) Count 9.6 thou/uL (4.8-10.8)
[2021-12-19 19:49] LABS: ALT (SGPT) 13 U/L (8-55); AST (SGOT) 16 U/L (5-34); Alkaline Phosphatase 130 U/L (40-110); Anion Gap 15 mmol/L (10-20); BUN (Urea Nitrogen) 12 mg/dL (9.8-20.1); Bilirubin, Total 0.3 mg/dL (0.2-1.2); Calc. Creatinine Clearance 0 mL/min (70-130); Calcium 8.9 mg/dL (7.8-10.44); Carbon Dioxide 25 mmol/L (23-31); Chloride 102 mmol/L (98-107); Globulin 2.7 g/dL (2.4-3.5); Glucose 89 mg/dL (80-115); Potassium 3.9 mmol/L (3.5-5.1); Protein, Total 6.7 g/dL (5.8-8.1); Sodium 138 mmol/L (136-145)
[2021-12-19] MEDS ORDERED: Ondansetron PF 4 MG/2 ML Vial IVP PRN (21:13)
[2021-12-19] MEDS ORDERED: Acetaminophen 325 MG TAB PO PRN (21:13)
[2021-12-19] MEDS ORDERED: Ondansetron ODT 4 MG TAB PO PRN (21:13)
[2021-12-19] MEDS ORDERED: Nitroglycerin 0.4 MG TAB (25 Tab Bottle) SL PRN (21:13)
[2021-12-19] MEDS ORDERED: Acetaminophen 650 MG Suppository PR PRN (21:13)
[2021-12-19] MEDS ORDERED: Nicotine 14 MG PATCH TD SCH (21:15)
[2021-12-19 22:44] VITALS: BMI 30.2
[2021-12-19 23:07] LABS: Troponin I Less than 0.010 ng/mL (< 0.028)
[2021-12-19] MEDS ORDERED: HYDROcodone/Acetaminophen 5/325 mg Tablet PO PRN (23:19)
[2021-12-19] MEDS ORDERED: Gabapentin 300 MG CAP PO SCH (23:45)
[2021-12-19] MEDS ORDERED: Atorvastatin Calcium 40 MG TAB PO SCH (23:45)
[2021-12-20 01:54] LABS: Troponin I Less than 0.010 ng/mL (< 0.028)
[2021-12-20 05:02] LABS: #Basophils 0.1 thou/uL (0.0-0.2); #Eosinphils 0.2 thou/uL (0.0-0.7); #Lymphocytes 2.6 thou/uL (1.20-3.40); #Monocytes 0.6 thou/uL (0.11-0.59); #Neutrophils 5.7 thou/uL (1.40-6.50); %Basophils 0.8 % (0.0-1.0); %Eosinophils 2.6 % (0.0-10.0); %Lymphocytes 28.1 % (21.0-51.0); %Monocytes 6.8 % (0.0-10.0); %Neutrophils 61.6 % (42.0-75.0); Hemoglobin 11.9 g/dL (12.0-16.0); Mean Corpuscular HGB CONC 33.8 g/dL (32.0-36.0); Mean Corpuscular Hemoglobin 32.3 pg (27.0-31.0); Mean Corpuscular Volume 95.6 fL (78.0-98.0); Mean Platelet Volume 7.8 fL (7.4-10.4); Platelet Count 270 thou/uL (130-400); RBC Distribution Width 12.7 % (11.5-14.5); Red Blood Cell (RBC) Count 3.68 mill/uL (4.20-5.40); White Blood Cell (WBC) Count 9.2 thou/uL (4.8-10.8)
[2021-12-20 05:20] LABS: Anion Gap 11 mmol/L (10-20); BUN (Urea Nitrogen) 15 mg/dL (9.8-20.1); Calc. Creatinine Clearance 96 mL/min (70-130); Calcium 8.9 mg/dL (7.8-10.44); Carbon Dioxide 27 mmol/L (23-31); Chloride 103 mmol/L (98-107); Glucose 91 mg/dL (80-115); Potassium 3.4 mmol/L (3.5-5.1); Sodium 138 mmol/L (136-145)
[2021-12-20] MEDS ORDERED: Levothyroxine Sodium 75 MCG TAB PO SCH (06:00)
[2021-12-20] MEDS ORDERED: Electrolyte Replacement Protocol 1 EACH FS SCH (07:30)
[2021-12-20] MEDS ORDERED: predniSONE 5 MG TAB PO SCH (08:00)
[2021-12-20] MEDS ORDERED: Regadenoson 0.4 MG/5 ML SYRINGE ONE (08:48)
[2021-12-20] MEDS ORDERED: Gabapentin 300 MG CAP PO SCH (09:00)
[2021-12-20] MEDS ORDERED: Potassium Chloride 20 MEQ TAB PO SCH (09:00)
[2021-12-20] MEDS ORDERED: Clopidogrel Bisulfate 75 MG TAB PO SCH (09:00)
[2021-12-20] MEDS ORDERED: Aspirin 81 mg Enteric Coated Tablet PO SCH (09:00)
[2021-12-20] MEDS ORDERED: DULoxetine 30 MG CAP PO SCH (09:00)
[2021-12-20] MEDS ORDERED: Enoxaparin Sodium 40 MG/0.4 ML SYRINGE SC SCH (09:00)
[2021-12-20] MEDS ORDERED: Lorazepam 0.5 MG TAB PO PRN (10:27)
[2021-12-20] MEDS ORDERED: Lorazepam 1 MG TAB PO PRN (10:30)
[2021-12-20 12:08] LABS: SARS-CoV-2 PCR by NAA Not Detected (NotDetected)
[2021-12-20] MEDS ORDERED: Nicotine 14 MG PATCH TD SCH (16:00)
[2021-12-20 16:10] LABS: Potassium 4.2 mmol/L (3.5-5.1)
[2021-12-20 16:27] VITALS: BP 118/57; TEMP 98
[2021-12-20] MEDS ORDERED: Atorvastatin Calcium 40 MG TAB PO SCH (21:00)
[2021-12-20] MEDS ORDERED: Metoprolol Tartrate 25 MG TAB PO SCH (21:00)
[2021-12-21] MEDS ORDERED: Furosemide 40 MG TAB PO SCH (09:00)
[2021-12-21] MEDS ORDERED: Furosemide 20 MG TAB PO SCH (09:00)
== END 2021-12-20 17:45 | disposition home or self-care (01) ==
LOC: ERS 18:52 → 2SW 20:57
PROVIDERS: ADMIT Internal Medicine; ATTEND Internal Medicine
DX: R07.89 Other chest pain (principal); I25.10 Atherosclerotic heart disease of native coronary artery without angina pectoris; F17.210 Nicotine dependence, cigarettes, uncomplicated; M35.00 Sjogren syndrome, unspecified; Z86.73 Personal history of transient ischemic attack (TIA), and cerebral infarction without residual deficits; Z79.02 Long term (current) use of antithrombotics/antiplatelets; Z79.52 Long term (current) use of systemic steroids; Z79.82 Long term (current) use of aspirin; Z79.899 Other long term (current) drug therapy; Z95.1 Presence of aortocoronary bypass graft; Z20.822 Contact with and (suspected) exposure to COVID-19
CPT/HCPCS: 71045; 78452; 80048; 80053; 84132; 84484 ×3; 85025 ×2; 93005; 93017; 94760 ×2; 99285; A9500; U0003; U0005; 36415; G0378; J2785; J7512

== ENCOUNTER 2023-10-02 09:45 | Outpatient (CLI) | payer MEDICARE, MEDICAID | END 2023-10-02 09:46 | disposition home or self-care (01) | LOC: BICCT 09:45 | PROVIDERS: ATTEND Physician Assistant | DX: I73.9 Peripheral vascular disease, unspecified (principal); I70.0 Atherosclerosis of aorta; I70.203 Unspecified atherosclerosis of native arteries of extremities, bilateral legs | CPT/HCPCS: 75635; 82565 ==